=== PATIENT | female | born 1990 | race Two or more races ===

== ENCOUNTER 2018-02-13 23:17 | Inpatient (IN) | payer BC, OTHER ==
--- NOTE | 2018-02-14 00:59 | HP ---
General Information - General Information Maternal Age: 27 Grav: 3 Para: 1 SAB: 1 IEA: 0 Estimated Due Date: 02/22/18 Determined By: LMP Gestational Age in Weeks and Days: 38 Weeks and 5 Days Maternal Blood Type and Rh: O Positive - Results this Serology/RPR Result: Non-Reactive Rubella Result: Immune HBsAg Result: Negative HIV Result: Negative GBS Culture Result: Negative Past Medical History Delivery History: Hx Uncomplicated Vaginal Delivery Pertinent Past Medical History: Non-Contributory Pertinent Past Surgical History: None Pertinent Family History: Non-Contributory - Antepartal Records Antepartal Records: Reviewed, Uncomplicated Review of Systems Constitutional: Comfortable CV Complaint: No Respiratory: Shortness of Breath: No Gastrointestinal: No Nausea/Vomiting Genitourinary: No Dysuria, No Bleeding, No Leaking Fluid Musculoskeletal: Contractions Neurological: No Headache Movement: Normal Exam Allergies/Adverse Reactions: Allergies No Known Allergies Allergy (Verified 02/14/18 00:58) - Measurements Height: 5 ft 4 in Weight: 154 lb Weight in lbs: 154 Body Mass Index (BMI): 26.4 Pre- Weight: 121 lb 4.068 oz Weight Gained This : 32.745 lbs and 0.012 ozs - Exam Breast: Breast Exam Deferred Extremities: No Edema Heart: Normal Rhythm/Heart Sounds HEENT: No Significant Findings - Abdominal Exam Abdomen Exam: Non-Tender Targeted Exam Findings Cervical Exam: 4cm Effacement: 100% Station: -2 Presenting Part: Vertex Membrane Status: Bulging EFM Findings - External Monitor Findings Baseline Heart Rate: 120 External Monitor Findings: Accelerations Present, No Pattern of Variable or Late Decelerations, Variability Moderate, Baseline Stable Contractions: Regular Assessment/Plan - Reason for Visit Reason for Visit: @38.5wks in active labor. GBS negative. Prior baby IUGR - this one measuring appropriately. - Plan Plan: Active Labor Plan Comment: Epidural - Date/Time of Admission Date of Admission: 02/14/18 Time of Admission: 01:05
[2018-02-14 01:05] LABS: ABS Basophils 0.1 10^3/ul (0-0.2); ABS Eosinophils 0 10^3/ul (0-0.6); ABS Lymphocytes 1.9 10^3/ul (1.0-4.8); ABS Monocytes 0.6 10^3/ul (0-0.8); ABS Neutrophils 3.3 10^3/ul (1.5-7.7); ABS Nucleated RBC 0 10^3/ul; Eosinophil % 0.4 % (0-6); Hematocrit 38 % (35-47); Hemoglobin 12.6 g/dl (12.0-16.0); Lymphocyte % 32.1 % (25-47); Mean Corpuscular HGB Conc 33 g/dl (31-36); Mean Corpuscular Hemoglobin 27 pg (27-31); Mean Corpuscular Volume 83 fL (80-97); Nucleated Red Blood Cells % 0.1; Platelet Count 184 10^3/ul (150-450); Red Blood Count 4.62 10^6/ul (4.0-5.4); Red Cell Distribution Width 15 % (10.5-15)
[2018-02-14] MEDS ORDERED: OBEPIDURAL* 250 ML EPIDURAL ONE (01:23)
[2018-02-14] MEDS ORDERED: Phenylephrine IV* 40 MCG/ML 10 ML SYRINGE IV PUSH PRN ×2 (01:56)
[2018-02-14] MEDS ORDERED: Sodium Citrate/Citric Acid* 15 ML UDC PO PRN (01:56)
[2018-02-14] MEDS ORDERED: OBEPIDURAL* 250 ML EPIDURAL SCH (02:00)
[2018-02-14] MEDS ORDERED: Dibucaine 1% 28.35 GM TUBE PR PRN (06:37)
[2018-02-14] MEDS ORDERED: Glycerin ADULT SUPP PR PRN (06:37)
[2018-02-14] MEDS ORDERED: Witch Hazel PAD* JAR TOPICAL PRN (06:37)
[2018-02-14] MEDS: Docusate CAP* 100 MG PO SCH ×3 (09:20→20:03)
[2018-02-14] MEDS: Simethicone TAB* 80 MG TAB.CHEW PO SCH (12:30)
[2018-02-14] MEDS: Ibuprofen TAB* 600 MG PO PRN (20:02)
[2018-02-14] MEDS: Acetaminophen TAB* 325 MG PO PRN (21:41)
[2018-02-15] MEDS: Simethicone TAB* 80 MG TAB.CHEW PO SCH ×3 (00:37→12:30)
[2018-02-15] MEDS: Acetaminophen TAB* 325 MG PO PRN ×2 (03:55→19:58)
[2018-02-15] MEDS: Ibuprofen TAB* 600 MG PO PRN ×4 (03:55→22:22)
[2018-02-15 08:06] LABS: ABS Basophils 0.1 10^3/ul (0-0.2); ABS Eosinophils 0.1 10^3/ul (0-0.6); ABS Lymphocytes 2.2 10^3/ul (1.0-4.8); ABS Monocytes 0.8 10^3/ul (0-0.8); ABS Neutrophils 5.1 10^3/ul (1.5-7.7); ABS Nucleated RBC 0 10^3/ul; Eosinophil % 0.9 % (0-6); Hematocrit 35 % (35-47); Hemoglobin 11.6 g/dl (12.0-16.0); Lymphocyte % 26.3 % (25-47); Mean Corpuscular HGB Conc 33 g/dl (31-36); Mean Corpuscular Hemoglobin 27 pg (27-31); Mean Corpuscular Volume 83 fL (80-97); Mean Platelet Volume 10.5 um3 (7.4-10.4); Nucleated Red Blood Cells % 0.1; Platelet Count 171 10^3/ul (150-450); Red Blood Count 4.26 10^6/ul (4.0-5.4); Red Cell Distribution Width 15 % (10.5-15); White Blood Count 8.2 10^3/ul (3.5-10.8)
[2018-02-15] MEDS ORDERED: Ferrous Gluconate TAB* 324 MG TAB PO SCH (09:00)
[2018-02-15] MEDS: Docusate CAP* 100 MG PO SCH ×3 (09:30→19:58)
[2018-02-16] MEDS: Ibuprofen TAB* 600 MG PO PRN ×2 (04:32→10:24)
[2018-02-16 09:00] VITALS: BP 108/73
[2018-02-16] MEDS: Docusate CAP* 100 MG PO SCH (10:24)
== END 2018-02-16 12:00 | disposition home or self-care (01) | DRG 775 ==
LOC: MCHOBOUT 23:17 → MCHOB 02-14 00:06
PROVIDERS: ADMIT Obstetrics & Gynecology; ATTEND Obstetrics & Gynecology
PROC: 10E0XZZ Delivery of Products of Conception, External Approach (ICD-10-PCS; principal; 2018-02-14)
PROC: 0KQM0ZZ Repair Perineum Muscle, Open Approach (ICD-10-PCS; 2018-02-14)
PROC: 10907ZC Drainage of Amniotic Fluid, Therapeutic from Products of Conception, Via Natural or Artificial Opening (ICD-10-PCS; 2018-02-14)
DX: O71.4 Obstetric high vaginal laceration alone (principal); Z37.0 Single live birth; Z3A.38 38 weeks gestation of pregnancy
CPT/HCPCS: 36415; 85025; 86850; 86900; 86901; A9270-GY

== ENCOUNTER 2022-05-17 01:17 | Inpatient (IN) ==
[2022-05-17] MEDS ORDERED: Promethazine INJ(RESTRICTED) 25 MG/ML 1 ml VIAL IM ONE (04:00)
[2022-05-17] MEDS ORDERED: Nalbuphine 10 MG/ML 1 ML VIAL IM ONE (04:00)
[2022-05-17] MEDS ORDERED: Buffered Lidocaine 1% SYRIN 1 ml INTRADERM ONE (10:47)
[2022-05-17] MEDS ORDERED: Penicillin G Potassium IV 5,000,000 UNITS in NS 0.9% 100 ml BAG 100 ML IVPB ONE (10:47)
[2022-05-17] MEDS ORDERED: Lactated Ringers 1000 ml BAG 1,000 ML IV ONE ×2 (10:47→12:10)
[2022-05-17 11:14] LABS: ABS Basophils 0.1 10^3/ul (0-0.2); ABS Lymphocytes 1.7 10^3/ul (1.0-4.8); ABS Monocytes 0.6 10^3/ul (0-0.8); ABS Neutrophils 4.3 10^3/ul (1.5-7.7); Eosinophil % 0.7 %; Hematocrit 37 % (35-47); Lymphocyte % 24.6 %; Mean Corpuscular HGB Conc 32 g/dL (31-36); Mean Corpuscular Hemoglobin 27 pg (27-31); Mean Corpuscular Volume 84 fL (80-97); Mean Platelet Volume 11.1 fL (7.4-10.4); Nucleated Red Blood Cells % 0.1; Platelet Count 155 10^3/uL (150-450); Red Blood Count 4.45 10^6 /uL (3.70-4.87); Red Cell Distribution Width 15 % (10-15); White Blood Count 6.7 10^3/uL (3.5-10.8)
[2022-05-17 11:31] LABS: Urine Benzodiazepine Screen None Detected (None Detect); Urine Cannabinoids Screen None Detected (None Detect); Urine Opiates Screen None Detected (None Detect)
[2022-05-17] MEDS ORDERED: OBEPIDURAL (200 ML) 200 ML EPIDURAL ONE (11:37)
[2022-05-17] MEDS ORDERED: Lidocaine 1% w EPI 1:200,000 SDV 30 ML VIAL ONE (11:37)
[2022-05-17] MEDS ORDERED: Phenylephrine 40 mcg/mL 10mL (400mcg) SYRINGE IV PUSH PRN (12:10)
[2022-05-17] MEDS ORDERED: Sodium Citrate/Citric Acid LIQ 15 ML UDC PO PRN (12:10)
[2022-05-17] MEDS ORDERED: Lactated Ringers 1000 ml BAG 500 ML IV PRN (12:10)
[2022-05-17] MEDS: Lactated Ringers 1000 ml BAG 1,000 ML IV SCH ×2 (12:11→15:33)
[2022-05-17] MEDS: Phenylephrine 40 mcg/mL 10mL (400mcg) SYRINGE IV PUSH PRN ×2 (12:41→12:43)
[2022-05-17] MEDS ORDERED: OBEPIDURAL (200 ML) 200 ML EPIDURAL SCH (13:00)
[2022-05-17] MEDS ORDERED: Lactated Ringers 1000 ml BAG 1,000 ML IV SCH ×3 (13:00→17:00)
[2022-05-17 14:26] LABS: Urine Bacteria Absent (Absent); Urine Red Blood Cell Trace(0-2/hpf) (Absent); Urine Squamous Epithelial Cell Present (Absent); Urine White Blood Cell Trace(0-5/hpf) (Absent)
[2022-05-17 14:27] LABS: Urine Appearance Clear; Urine Bilirubin Negative (Negative); Urine Blood Negative (Negative); Urine Color Straw; Urine Glucose Negative (Negative); Urine Ketones Negative (Negative); Urine Nitrite Negative (Negative); Urine Protein Negative (Negative); Urine Urobilinogen 0.2 (Negative) (Negative)
[2022-05-17] MEDS ORDERED: Penicillin G Potassium IV 3,000,000 UNITS in NS 0.9% 100 ml BAG 100 ML IVPB SCH (15:00)
[2022-05-17] MEDS ORDERED: Oxytocin in LR 20,000 MILLI.UNIT/1,000 ML BAG IV ONE (16:14)
[2022-05-17] MEDS ORDERED: Glycerin ADULT 2.4 gm SUPP PR PRN (16:29)
[2022-05-17] MEDS ORDERED: Witch Hazel PAD JAR TOPICAL PRN (16:29)
[2022-05-17] MEDS ORDERED: Oxytocin in LR 20,000 MILLI.UNIT/1,000 ML BAG IV SCH (16:30)
[2022-05-17] MEDS: Dibucaine 1% OINT 28.35 GM TUBE PR PRN (18:20)
[2022-05-18 06:35] LABS: ABS Basophils 0.1 10^3/ul (0-0.2); ABS Eosinophils 0.1 10^3/ul (0-0.6); ABS Lymphocytes 1.4 10^3/ul (1.0-4.8); ABS Monocytes 0.9 10^3/ul (0-0.8); ABS Neutrophils 5.9 10^3/ul (1.5-7.7); Eosinophil % 0.9 %; Hematocrit 30 % (35-47); Hemoglobin 9.9 g/dL (12.0-16.0); Lymphocyte % 16.8 %; Mean Corpuscular HGB Conc 33 g/dL (31-36); Mean Corpuscular Hemoglobin 28 pg (27-31); Mean Corpuscular Volume 85 fL (80-97); Mean Platelet Volume 10.2 fL (7.4-10.4); Platelet Count 136 10^3/uL (150-450); Red Blood Count 3.54 10^6 /uL (3.70-4.87); Red Cell Distribution Width 15 % (10-15); White Blood Count 8.3 10^3/uL (3.5-10.8)
[2022-05-19 08:10] VITALS: BP 115/75
[2022-05-19] MEDS: Dibucaine 1% OINT 28.35 GM TUBE PR PRN (11:09)
== END 2022-05-19 12:20 | disposition home or self-care (01) | DRG 560 ==
LOC: MCHOBOUT 01:17 → MCHOB 10:48
PROVIDERS: ADMIT Obstetrics & Gynecology; ATTEND Obstetrics & Gynecology